=== PATIENT | female | born 1985 | race American Indian/Alaskan Native ===

== ENCOUNTER 2018-09-09 09:07 | Inpatient (IN) | payer MEDICAID ==
[2018-09-09] MEDS ORDERED: BICITRA PO ONE ×3 (10:25→17:00)
[2018-09-09] MEDS ORDERED: REGLAN IV ONE ×3 (10:25→17:00)
[2018-09-09] MEDS ORDERED: PEPCID IV ONE ×3 (10:25→17:00)
[2018-09-09] MEDS: LACTATED RINGERS 1,000 ML IV SCH ×2 (10:59→19:44)
[2018-09-09] MEDS ORDERED: PITOCin/NS 20 UNIT/1000ML DRIP 20 UNITS/1,000 ML BAG IV SCH ×2 (11:00→21:00)
[2018-09-09] MEDS ORDERED: ANCEF/STERILE WATER 2 GM/20 ML 2 GM/20 ML SYRINGE IV NR (11:00)
--- NOTE | 2018-09-09 11:07 | History and Physical Report ---
History of Present Illness Date of examination: 09/09/18 Date of admission: 09/09/18 09:07 Chief complaint: SROM followed by contractions History of present illness: Pt is a 32yo BF EDC 09/16/18; EGA 39 0/7 weeks presents to L&D complaining of SROM @ 0730 followed by irregular contractions. She received care at [facility] and was scheduled for a Repeat C Section at [facility] tomorrow. records are available and GBS is Negative. Past History Past Medical History: no pertinent history Past Surgical History: section Family/Genetic History: none Social history: no significant social history, single - Obstetrical History Expected Date of Delivery: 09/16/18 Actual Gestation: 39 Week(s) 0 Day(s) : 2 Medications and Allergies Allergies Allergy/AdvReac Type Severity Reaction Status Date / Time No Known Allergies Allergy Unverified 09/09/18 09:33 Active Meds: Active Medications Cefazolin Sodium (Ancef/Sterile Water 2 Gm/20 Ml) 2 gm in 20 mls @ 80 mls/hr IV PREOP NR; Protocol Stop: 09/09/18 23:59 Oxytocin/Sodium Chloride (Pitocin/Ns 20 Unit/1000ml Drip) 20 units in 1,000 mls @ 0 mls/hr IV TITR VIKAS Lactated Ringer's (Lactated Ringers) 1,000 mls @ 2,250 mls/hr IV PREOP VIKAS Stop: 09/10/18 11:27 Last Admin: 09/09/18 10:59 Dose: 2,250 mls/hr Documented by: Review of Systems All systems: negative - Vital Signs Vital signs: Vital Signs Pulse BP 101 H 127/66 09/09/18 09:21 09/09/18 09:21 Temp Pulse Resp BP Pulse Ox 100 H 120/59 09/09/18 09:22 09/09/18 09:22 - Physical Exam Abdomen: Positive: normal appearance, soft Genitourinary (Female): Positive: normal external genitalia Vagina: Positive: normal moisture Uterus: Positive: enlarged Extremities: Positive: normal - Obstetrical FHR: category 1 Uterine Contraction Monitor Mode: External Results Result Diagrams: 09/09/18 10:58 All other labs normal. Assessment and Plan - Patient Problems (1) 39 weeks gestation of Onset Date: 09/09/18 Current Visit: Yes Status: Acute Plan to address problem: A: IUP @ 39 0/7 weeks in early labor Previous C Section P: Admit for a Repeat C Section (2) Previous section Onset Date: 09/09/18 Current Visit: Yes Status: Acute
[2018-09-09 11:24] LABS: Basophils % (Auto) 0.2 % (0.0-1.8); Eosinophils # (Auto) 0.1 K/mm3 (0.0-0.4); Eosinophils % (Auto) 0.7 % (0.0-4.3); Hematocrit 36.6 % (30.3-42.9); Hemoglobin 12.3 gm/dl (10.1-14.3); Lymphocytes # (Auto) 1.4 K/mm3 (1.2-5.4); Lymphocytes % (Auto) 20.2 % (13.4-35.0); Mean Corpuscular HGB Conc 34 % (30-34); Mean Corpuscular Volume 86 fl (79-97); Monocytes # (Auto) 0.8 K/mm3 (0.0-0.8); Monocytes % (Auto) 10.7 % (0.0-7.3); Platelet Count 198 K/mm3 (140-440); Red Blood Count 4.25 M/mm3 (3.65-5.03); Red Cell Distribution Width 13.2 % (13.2-15.2)
--- NOTE | 2018-09-09 18:15 | Anesthesia Consultation ---
Anesthesia Consult and Med Hx Date of service: 09/09/18 - Airway Anesthetic Teeth Evaluation: Poor, Chipped Mallampati Class: Class II Intubation Access Assessment: Probably Good - Pulmonary Exam CTA: Yes - Cardiac Exam Cardiac Exam: RRR - Pre-Operative Health Status ASA Pre-Surgery Classification: ASA2 Proposed Anesthetic Plan: Epidural - Pulmonary Hx Smoking: No Hx Asthma: No Hx Respiratory Symptoms: No SOB: No COPD: No Home Oxygen Therapy: No Hx Pneumonia: No Hx Sleep Apnea: No - Cardiovascular System Hx Hypertension: No Hx Coronary Artery Disease: No Hx Heart Attack/AMI: No Hx Angina: No Hx Percutaneous Transluminal Coronary Angioplasty (PTCA): No Hx Cardia Arrhythmia: No Hx Pacemaker: No Hx Internal Defibrillator: No Hx Valvular Heart Disease: No Hx Heart Murmur: No Hx Peripheral Vascular Disease: No - Central Nervous System Hx Neuromuscular Disorder: No Hx Seizures: Yes (started at age 4yrs last time around 4 years old) CVA: No Hx Back Pain: Yes Hx Psychiatric Problems: No - Gastrointestinal Hx Ulcer: No Hx Gastroesophageal Reflux Disease: Yes - Endocrine Hx Renal Disease: No Hx End Stage Renal Disease: No Hx Cirrhosis: No Hx Liver Disease: No Hx Insulin Dependent Diabetes: No Hx Non-Insulin Dependent Diabetes: No Hx Thyroid Disease: No Hx Hypothyroidism: No Hx Hyperthyroidism: No - Hematic Hx Anemia: No Hx Sickle Cell Disease: No - Other Systems Hx Alcohol Use: No Hx Substance Use: No Hx Cancer: No Hx Obesity: Yes (BMI 40.2)
--- NOTE | 2018-09-09 18:16 | Anesthesia Day of Surgery ---
Anesthesia Day of Surgery - Day of Surgery Patient Examined: Yes Patient H&P Reviewed: Yes Patient is NPO: Yes Beta Blockers: No Cardiac Clearance: No Pulmonary Clearance: No Dario's Test: N/A
[2018-09-09] MEDS ORDERED: PHENERGAN PR PRN (18:18)
[2018-09-09] MEDS ORDERED: NARCAN 0.4 MG/1 ML IV PRN ×2 (18:18→20:41)
[2018-09-09] MEDS ORDERED: PHENERGAN PO PRN (18:18)
[2018-09-09] MEDS ORDERED: DILAUDID IV PRN ×2 (18:18)
[2018-09-09] MEDS ORDERED: ZOFRAN IV PRN (18:18)
[2018-09-09] MEDS ORDERED: SUBLIMAZE ONE (18:31)
[2018-09-09] MEDS ORDERED: SODIUM CHLORIDE FLUSH SYRINGE 10 ML IV NR ×2 (19:00→21:00)
[2018-09-09] MEDS ORDERED: WATER FOR IRRIG STERILE IR ONE (19:30)
[2018-09-09] MEDS ORDERED: NACL 0.9% IR ONE (19:30)
[2018-09-09] MEDS ORDERED: TORADOL ONE (20:35)
[2018-09-09] MEDS ORDERED: LANSINOH TP PRN (20:41)
[2018-09-09] MEDS ORDERED: TYLENOL PO PRN (20:41)
[2018-09-09] MEDS ORDERED: SENOKOT PO PRN (20:41)
[2018-09-09] MEDS ORDERED: NORCO 5/325 PO PRN (20:41)
[2018-09-09] MEDS ORDERED: TUCKS PAD TP PRN (20:41)
[2018-09-09] MEDS ORDERED: MYLICON PO PRN (20:41)
[2018-09-09] MEDS ORDERED: TORADOL IV PRN (20:41)
[2018-09-09] MEDS ORDERED: MILK OF MAGNESIA PO PRN (20:41)
--- NOTE | 2018-09-09 20:49 | Operative Report ---
Operative Report Operative Report: Date of procedure: 09/09/2018 Pre-operative diagnosis: 1. Intrauterine at 39 0/7 weeks in labor 2 . Previous Post-operative diagnosis: Same Procedure name(s): Repeat low transverse section Surgeon: Yadiel Stoddard MD Fire Range Technician: None Anesthesia: Spinal anesthesia by Juliane Fletcher CRNA EBL: 500 mL's Findings: A 3399 g male Apgars 8 at 1 minute 9 at 5 minutes. Nuchal cord 2. Clear amniotic fluid. Normal uterus. Normal tubes and ovaries bilaterally. Procedure: After the patient was prepped and draped in usual sterile fashion, and after satisfactory level of epidural anesthesia was obtained, the skin knife was used to make a transverse skin incision through the previous skin scar. The incision was excised down to layer of the fascia, which was nicked in the midline and extended laterally using the Bovie cautery. The rectus muscles were dissected off the rectus fascia both superiorly and inferiorly. The rectus bellies in the midline, and the peritoneum was entered under direct visualization. The peritoneal incision was extended superiorly and inferiorly. A bladder flap was created and the bladder blade was then placed. The uterus was scored in a curvilinear linear fashion, entered in the midline revealing clear amniotic fluid. The infant's head was delivered onto the surgical field, nuchal cord 2 reduced and the oropharynx and nasopharynx were bulb suctioned. The rest of the infant's body was delivered, cord was doubly clamped and cut and the was handed to the waiting respiratory team. The placenta was manually removed from the uterus, and the uterus removed from its normal anatomical position. After gentle uterine lavage, the incision was inspected and found to be without extensions. It was then closed in 2 layers using 0 Vicryl suture in a running interlocking fashion, the second layer imbricating the first. After good hemostasis was achieved, copious amounts or irrigation was performed, and the gutters were suctioned free of blood and blood clots. The Tisseel sealant was sprayed across the uterine incision. The uterus was then returned to its normal anatomical position, and after excellent hemostasis assured, the peritoneum was re-approximated using 3-0 Vicryl suture in a running interlocking fashion, and then the rectus muscles were re-approximated using 3-0 Vicryl suture in a [id number] configuration. The fascia was then re- approximated using 0 Vicryl suture in running interlocking fashion. The subcutaneous layer was made hemostatic using Bovie cautery, the Tisseel sealant was sprayed across the fascial incision and the skin edges re-approximated using 4-0 Vicryl suture in a sub-cuticular fashion. Patient tolerated the procedure well was transported to recovery in stable condition.
[2018-09-09] MEDS ORDERED: D5LR 1,000 ML IV SCH (21:00)
[2018-09-09] MEDS ORDERED: ANCEF/NS 1 GM/50 ML 1 GM/50 ML BAG IV SCH (21:00)
--- NOTE | 2018-09-09 21:14 | Post Anesthesia Evaluation ---
- Post Anesthesia Evaluation Patient Participated: Yes Airway Patent: Yes Stable Respiratory Function: Yes Nausea/Vomiting: No Temp > 96.8F: Yes Pain Manageable: Yes Adequeate Hydration: Yes Anesthesia Complications: No Block Receding Appropriately: Yes Patient on Ventilator: No
[2018-09-10] MEDS: ANCEF/NS 1 GM/50 ML 1 GM/50 ML BAG IV SCH ×2 (04:57→12:40)
--- NOTE | 2018-09-10 08:52 | Progress Note ---
Assessment and Plan - Patient Problems (1) 39 weeks gestation of Onset Date: 09/09/18 Current Visit: Yes Status: Resolved (2) Previous section Onset Date: 09/09/18 Current Visit: Yes Status: Resolved (3) Status post section Onset Date: 09/10/18 Current Visit: Yes Status: Resolved Plan to address problem: A: S/P C Section - POD #1 Doing well Asymptomatic anemia - stable P: Continue RPOC Anticipate discharge in 24-48hrs Subjective - Subjective Date of service: 09/10/18 Principal diagnosis: s/p Repeat C Section - POD #1 Interval history: Pt is feeling well without complaints. Bleeding improved. Patient reports: appetite normal, voiding normally, pain well controlled, ambulating normally, no dizzy ambulation, no flatus, no nauseated [place]: doing well, bottle feeding Objective - Vital Signs Latest vital signs: Vital Signs Temp Pulse Resp BP BP Pulse Ox 09/10/18 08:04 97.9 F 75 20 112/50 100 09/10/18 03:10 97.9 F 100 H 18 118/61 100 09/09/18 21:48 98.5 F 92 H 20 103/48 95 09/09/18 21:33 84 14 124/49 99 09/09/18 21:19 83 15 102/46 100 09/09/18 21:03 82 14 106/52 100 09/09/18 20:48 97.7 F 106 H 17 117/62 97 09/09/18 14:22 100 H 123/57 09/09/18 09:37 98.4 F 09/09/18 09:22 100 H 120/59 09/09/18 09:21 101 H 127/66 Intake and Output 09/09/18 09/10/18 09/10/18 22:59 06:59 14:59 Intake Total 2700 Output Total 150 Balance 2550 Intake: IV 2700 Lactated Ringers 1,000 ml 1000 @ 2250 mls/hr IV PREOP VIKAS Rx#:[id number] Output: Urine 150 Other: Estimated Blood Loss 500 - Exam Breasts: Present: deferred Abdomen: Present: normal appearance, soft Uterus: Present: normal, firm, fundal height below umbilicus Extremities: Present: normal Incision: Present: normal, dry, intact, dressed - Labs Labs: Abnormal lab results 09/09/18 Range/Units 10:58 [place] % (Auto) 10.7 H (0.0-7.3) % Laboratory Tests 09/09/18 09/09/18 09/10/18 10:58 11:00 10:36 WBC 7.1 RBC 4.25 Hgb 12.3 11.4 Hct 36.6 34.6 MCV 86 MCH 29 MCHC 34 RDW 13.2 Plt Count 198 Lymph % (Auto) 20.2 [place] % (Auto) 10.7 H Eos % (Auto) 0.7 Baso % (Auto) 0.2 Lymph # 1.4 [place] # 0.8 Eos # 0.1 Baso # 0.0 Seg Neutrophils % 68.2 Seg Neutrophils # 4.9 Blood Type A POSITIVE Antibody Screen Negative
[2018-09-10] MEDS: FEOSOL PO SCH (10:33)
[2018-09-10] MEDS: PRENATAL VITAMIN PO SCH (10:33)
[2018-09-10] MEDS: PERCOCET 5/325 PO PRN ×2 (10:33→21:23)
[2018-09-10] MEDS: IBUPROFEN PO PRN ×2 (10:37→21:21)
[2018-09-10 11:41] LABS: Hematocrit 34.6 % (30.3-42.9); Hemoglobin 11.4 gm/dl (10.1-14.3)
[2018-09-10] MEDS ORDERED: BOOSTRIX IM ONE (20:43)
[2018-09-10] MEDS ORDERED: M-M-R II VACCINE SUB-Q ONE (20:43)
[2018-09-11] MEDS: IBUPROFEN PO PRN ×3 (02:54→22:56)
[2018-09-11] MEDS: PERCOCET 5/325 PO PRN ×2 (02:54→17:01)
[2018-09-11] MEDS: FEOSOL PO SCH (09:24)
[2018-09-11] MEDS: PRENATAL VITAMIN PO SCH (09:24)
--- NOTE | 2018-09-11 12:23 | Progress Note ---
Assessment and Plan - Patient Problems (1) 39 weeks gestation of Onset Date: 09/09/18 Current Visit: Yes Status: Resolved (2) Previous section Onset Date: 09/09/18 Current Visit: Yes Status: Resolved (3) Status post section Onset Date: 09/10/18 Current Visit: Yes Status: Resolved Plan to address problem: A: S/P C Section - POD #2 Doing well Asymptomatic anemia - stable P: May go home tomorrow. Subjective - Subjective Date of service: 09/11/18 Principal diagnosis: s/p Repeat C Section - POD #2 Interval history: Pt is feeling well without complaints. She is tolerating a reg diet without nausea or vomiting, ambulating and voiding without difficulty. Patient reports: appetite normal, voiding normally, pain well controlled, flatus, ambulating normally, no dizzy ambulation, no nauseated [place]: doing well, nursing well Objective - Vital Signs Latest vital signs: Vital Signs Temp Pulse Resp BP BP Pulse Ox 09/11/18 07:43 98.0 F 84 18 105/56 98 09/11/18 02:54 18 09/11/18 00:57 97.5 F L 96 H 18 103/57 98 09/10/18 21:23 20 09/10/18 21:21 20 09/10/18 20:00 98.5 F 96 H 18 107/63 09/10/18 16:38 98 F 72 18 122/65 100 09/10/18 13:06 97.9 F 84 18 120/69 100 Intake and Output 09/10/18 09/11/18 09/11/18 22:59 06:59 14:59 Intake Total 960 120 480 Output Total 750 Balance 210 120 480 Intake: Oral 240 240 Intake, Free Water 720 120 240 Output: Urine 750 Void 750 Other: Total, Intake Amount 240 120 Total, Output Amount 450 # Voids Void 1 1 1 - Exam Breasts: Present: deferred Cardiovascular: Present: Regular rate Lungs: Present: Clear to auscultation Abdomen: Present: normal appearance Uterus: Present: normal, firm Extremities: Present: normal Incision: Present: normal, dry, intact, dressed
--- NOTE | 2018-09-11 12:37 | Discharge Summary ---
Providers - Providers Date of Admission: 09/09/18 09:07 Date of discharge: 09/11/18 Attending physician: NICOLASA DEL ANGEL Primary care physician: [employer] Hospitalization Reason for admission: active labor, section, rupture of membranes, IUP at term Delivery: Procedure: section, repeat low transverse Episiotomy: none Laceration: none Incision: normal, dry, intact Other procedures: none complications: none Discharge diagnosis: IUP at term delivered [place] baby: male Hospital course: Pt is a 32yo BF EDC 09/16/18; EGA 39 0/7 weeks who presented to L&D complaining of SROM @ 0730 followed by irregular contractions. She was scheduled for a Repeat C [place] [facility] but underwent an uncomplicated Repeat C Section her at [facility]. By POD #2 she was tolerating a reg diet without nausea or vomiting, ambulating and voiding without difficulty. She was therefore discharged to home on POD #3 in stable condition. Condition at discharge: Good Disposition: DC-01 TO HOME OR SELFCARE - Discharge Diagnoses (1) 39 weeks gestation of Status: Resolved (2) Previous section Status: Resolved Plan - Discharge Medications Prescriptions: Ferrous Sulfate [Feosol 325 MG tab] 325 mg PO QDAY #30 tablet Ibuprofen [Motrin 800 MG tab] 800 mg PO Q6H PRN #30 tablet PRN Reason: Pain, Mild (1-3) oxyCODONE /ACETAMINOPHEN [Percocet 5/325 mg] 1 tab PO Q6H PRN #30 tablet PRN Reason: Pain, Moderate (4-6) Vit-Fe Fumar-FA [ Vitamin] 1 each PO QDAY #30 tablet - Provider Discharge Summary Activity: routine, no sex for 6 weeks, no heavy lifting 4 weeks, no strenuous exercise Diet: routine Instructions: routine Additional instructions: [] Smoking cessation referral if applicable(refer to patient education folder for contact #) [] Refer to [facility] Booklet Call your doctor immediately for: * Fever > 100.5 * Heavy vaginal bleeding ( >1 pad per hour) * Severe persistent headache * Shortness of breath * Reddened, hot, painful area to leg or breast * Drainage or odor from incision. * Keep incision clean and dry at all times and follow doctor's instructions regarding bathing/showering - Follow up plan Follow up: PRIMARY CAREMD [Primary Care Provider] - 7 Days NICOLASA DEL ANGEL MD [Staff Physician] - 14 Days
[2018-09-12] MEDS: PERCOCET 5/325 PO PRN (03:37)
[2018-09-12] MEDS: IBUPROFEN PO PRN (08:45)
[2018-09-12] MEDS: PRENATAL VITAMIN PO SCH (10:16)
[2018-09-12] MEDS: FEOSOL PO SCH (10:16)
[2018-09-12 11:52] VITALS: BP 127/66
== END 2018-09-12 13:00 | disposition home or self-care (01) | DRG 766 ==
LOC: LD 09:07 → OB 22:01
PROVIDERS: ADMIT Obstetrics & Gynecology; ATTEND Obstetrics & Gynecology
PROC: 10D00Z1 Extraction of Products of Conception, Low, Open Approach (ICD-10-PCS; principal; 2018-09-09)
PROC: 3E0234Z Introduction of Serum, Toxoid and Vaccine into Muscle, Percutaneous Approach (ICD-10-PCS; 2018-09-10)
DX: O34.211 Maternal care for low transverse scar from previous cesarean delivery (principal); Z3A.39 39 weeks gestation of pregnancy; Z37.0 Single live birth; E66.01 Morbid (severe) obesity due to excess calories; Z23 Encounter for immunization; K21.9 Gastro-esophageal reflux disease without esophagitis; D64.9 Anemia, unspecified; O90.81 Anemia of the puerperium; O99.62 Diseases of the digestive system complicating childbirth; O99.214 Obesity complicating childbirth
CPT/HCPCS: 36415; 85014; 85018; 85025; 86850; 86900; 86901; G0378; C9250; J0690; J1170; J1885; J2590; J2765; J3010; J7120; J7121